=== PATIENT | female | born 1990 | race American Indian/Alaskan Native ===

== ENCOUNTER 2019-02-06 16:04 | Emergency (ER) | payer BC, OTHER ==
[2019-02-06 16:11] VITALS: BP 126/76
--- NOTE | 2019-02-06 16:14 | Event Note ---
ED Screening Note Date of service: 02/06/19 Time: 16:09 ED Screening Note: 29 y/o female comes in for vaginal bleeding 2 weeks ago. LMP 12/07/18. . Pads today 3. Pelvic pressure. This initial assessment/diagnostic orders/clinical plan/treatment(s) is/are subject to change based on patients health status, clinical progression and re- assessment by fellow clinical providers in the ED. Further treatment and workup at subsequent clinical providers discretion. Patient/guardian urged not to elope from the ED as their condition may be serious if not clinically assessed and managed. Initial orders include:
[2019-02-06 17:03] LABS: Basophils % (Auto) 0.7 % (0.0-1.8); Eosinophils # (Auto) 0.1 K/mm3 (0.0-0.4); Eosinophils % (Auto) 1.6 % (0.0-4.3); Hematocrit 32.8 % (30.3-42.9); Lymphocytes # (Auto) 2.2 K/mm3 (1.2-5.4); Lymphocytes % (Auto) 45.3 % (13.4-35.0); Mean Corpuscular HGB Conc 33 % (30-34); Mean Corpuscular Volume 77 fl (79-97); Monocytes # (Auto) 0.4 K/mm3 (0.0-0.8); Monocytes % (Auto) 8.3 % (0.0-7.3); Platelet Count 227 K/mm3 (140-440); Red Blood Count 4.27 M/mm3 (3.65-5.03); Red Cell Distribution Width 16.7 % (13.2-15.2)
[2019-02-06 17:12] LABS: Bilirubin,Urine NEG (Negative); Blood,Urine LG (Negative); Color,Urine Red (Yellow); Mucus,Urine FEW /HPF; RBC,Urine > 182.0 /HPF (0.0-6.0); Urobilinogen,Urine < 2.0 mg/dL (<2.0)
--- NOTE | 2019-02-06 18:19 | Emergency Department Report ---
<MARIAN DEVINE CARA - Last Filed: 02/06/19 19:01> ED Female HPI - General Chief complaint: Vaginal Bleeding Stated complaint: VAGINAL BLEEDING/PELVIC PAIN/PREG Time Seen by Provider: 02/06/19 16:09 Source: patient Mode of arrival: Ambulatory Limitations: No Limitations - History of Present Illness Initial comments: This is a 29-year-old -Scottish female presents to the emergency room with pelvic pain and vaginal bleeding for 2 weeks. Patient states she just recently found out she was with a home test. She is not followed by [facility] PREPARATORY OPERATOR. Her last menstrual period was 12/07/2018, A2 abo rtions. Patient reported some vaginal bleeding initially started out light and increased on yesterday. She reports pelvic pain as constant pressure. She denies urinary frequency, urgency, dysuria, back pain, vaginal discharge, chest pain, dizziness, or palpitations. MD Complaint: vaginal bleeding, pelvic pain Onset/Timin -: week(s) Location: suprapubic Radiation: non-radiating Severity: moderate Severity scale (0 -10): 5 Quality: other (pressure) Consistency: constant Improves with: none Worsens with: none Are you Now?: Yes Last Menstrual Period: 12/07/18 EDC: 09/13/19 Associated Symptoms: vaginal bleeding, abdominal pain. denies: vaginal discharge, nausea/vomiting, fever/chills, headaches, loss of appetite, dysuria, hematuria, rash, seizure, shortness of breath, syncope, weakness - Related Data Sexually active: Yes : 5 Para: 2 A: 2 (abortions) Previous Rx's Medication Instructions Recorded Last Taken Type Cyclobenzaprine [Flexeril] 10 mg PO TID PRN #20 tablet 02/01/16 Unknown Rx Naproxen [Naprosyn] 500 mg PO BID #30 tablet 02/01/16 Unknown Rx cephALEXin [Keflex] 500 mg PO Q8HR #30 cap 02/06/19 Unknown Rx Allergies Allergy/AdvReac Type Severity Reaction Status Date / Time No Known Allergies Allergy Verified 02/06/19 16:06 ED Review of Systems Constitutional: denies: chills, fever Respiratory: denies: cough, shortness of breath, wheezing Cardiovascular: denies: chest pain, palpitations Gastrointestinal: abdominal pain. denies: nausea, diarrhea Genitourinary: other (vaginal bleeding during ). denies: urgency, dysuria, discharge Musculoskeletal: denies: back pain, joint swelling, arthralgia Skin: denies: rash, lesions Neurological: denies: headache, weakness, paresthesias Psychiatric: denies: anxiety, depression ED Past Medical Hx - Past Medical History Hx Congestive Heart Failure: No Hx Diabetes: No Hx Asthma: No Hx COPD: No - Surgical History Additional Surgical History: X2. - Social History Smoking Status: Current Every Day Smoker Substance Use Type: None - Medications Home Medications: Home Medications Medication Instructions Recorded Confirmed Last Taken Type Cyclobenzaprine [Flexeril] 10 mg PO TID PRN #20 tablet 02/01/16 Unknown Rx Naproxen [Naprosyn] 500 mg PO BID #30 tablet 02/01/16 Unknown Rx cephALEXin [Keflex] 500 mg PO Q8HR #30 cap 02/06/19 Unknown Rx ED Physical Exam - General Limitations: No Limitations General appearance: alert, in no apparent distress - Respiratory Respiratory exam: Present: normal lung sounds bilaterally. Absent: respiratory distress - Cardiovascular Cardiovascular Exam: Present: regular rate, normal rhythm. Absent: systolic murmur, diastolic murmur, rubs, gallop - GI/Abdominal GI/Abdominal exam: Present: soft, tenderness (suprapubic tenderness), normal bowel sounds. Absent: distended, guarding, rebound, rigid - Extremities Exam Extremities exam: Present: normal inspection - Back Exam Back exam: Absent: CVA tenderness (R), CVA tenderness (L) - Neurological Exam Neurological exam: Present: alert, oriented X3, normal gait - Psychiatric Psychiatric exam: Present: normal affect, normal mood - Skin Skin exam: Present: warm, dry, intact, normal color. Absent: rash ED Medical Decision Making - Lab Data Result diagrams: 02/06/19 16:38 Lab Results 02/06/19 02/06/19 02/06/19 Range/Units 16:22 16:38 16:38 WBC 4.9 (4.5-11.0) K/mm3 RBC 4.27 (3.65-5.03) M/mm3 Hgb 11.0 (10.1-14.3) gm/dl Hct 32.8 (30.3-42.9) % MCV 77 L (79-97) fl MCH 26 L (28-32) pg MCHC 33 (30-34) % RDW 16.7 H (13.2-15.2) % Plt Count 227 (140-440) K/mm3 Lymph % (Auto) 45.3 H (13.4-35.0) % [place] % (Auto) 8.3 H (0.0-7.3) % Eos % (Auto) 1.6 (0.0-4.3) % Baso % (Auto) 0.7 (0.0-1.8) % Lymph # 2.2 (1.2-5.4) K/mm3 [place] # 0.4 (0.0-0.8) K/mm3 Eos # 0.1 (0.0-0.4) K/mm3 Baso # 0.0 (0.0-0.1) K/mm3 Seg Neutrophils % 44.1 (40.0-70.0) % Seg Neutrophils # 2.1 (1.8-7.7) K/mm3 HCG, Quant 2560 H (0-4) mIU/mL Urine Color Red (Yellow) Urine Turbidity Cloudy (Clear) Urine pH 9.0 H (5.0-7.0) Ur Specific [place] 1.016 (1.003-1.030) Urine Protein 100 mg/dl (Negative) mg/dL Urine Glucose (UA) Neg (Negative) mg/dL Urine Ketones Neg (Negative) mg/dL Urine Blood Lg (Negative) Urine Nitrite Neg (Negative) Urine Bilirubin Neg (Negative) Urine Urobilinogen < 2.0 (<2.0) mg/dL Ur Leukocyte Esterase Sm (Negative) Urine WBC (Auto) 17.0 H (0.0-6.0) /HPF Urine RBC (Auto) > 182.0 (0.0-6.0) /HPF U Epithel Cells (Auto) 10.0 (0-13.0) /HPF Urine Mucus Few /HPF Blood Type Antibody Screen 02/06/19 Range/Units 16:38 WBC (4.5-11.0) K/mm3 RBC (3.65-5.03) M/mm3 Hgb (10.1-14.3) gm/dl Hct (30.3-42.9) % MCV (79-97) fl MCH (28-32) pg MCHC (30-34) % RDW (13.2-15.2) % Plt Count (140-440) K/mm3 Lymph % (Auto) (13.4-35.0) % [place] % (Auto) (0.0-7.3) % Eos % (Auto) (0.0-4.3) % Baso % (Auto) (0.0-1.8) % Lymph # (1.2-5.4) K/mm3 [place] # (0.0-0.8) K/mm3 Eos # (0.0-0.4) K/mm3 Baso # (0.0-0.1) K/mm3 Seg Neutrophils % (40.0-70.0) % Seg Neutrophils # (1.8-7.7) K/mm3 HCG, Quant (0-4) mIU/mL Urine Color (Yellow) Urine Turbidity (Clear) Urine pH (5.0-7.0) Ur Specific [place] (1.003-1.030) Urine Protein (Negative) mg/dL Urine Glucose (UA) (Negative) mg/dL Urine Ketones (Negative) mg/dL Urine Blood (Negative) Urine Nitrite (Negative) Urine Bilirubin (Negative) Urine Urobilinogen (<2.0) mg/dL Ur Leukocyte Esterase (Negative) Urine WBC (Auto) (0.0-6.0) /HPF Urine RBC (Auto) (0.0-6.0) /HPF U Epithel Cells (Auto) (0-13.0) /HPF Urine Mucus /HPF Blood Type A POSITIVE Antibody Screen Negative - Medical Decision Making Patient is stable and examined by me. Vitals are stable. LMP 12/07/2018, 2 abortions. Suprapubic tenderness on exam. Obtained labs and OB ultrasound. The hCG Quant 2560, urinalysis large amount of blood and leukocyte esterase. OB ultrasound pending. Chart signed to Jimy Suazo ED Disposition Clinical Impression: Threatened miscarriage in early Disposition: DC-01 TO HOME OR SELFCARE Condition: Stable Instructions: Threatened Miscarriage (ED), Urinary Tract Infection in Children (ED) Additional Instructions: Maintain a complete pelvic rest, take antibiotic for acute urinary tract infection, return to the ED in 2 days for repeat hCG Quant test, otherwise follow-up with the [facility]PAR[facility]ORY OPERATOR physician as advised. Return to the ED immediately if symptoms get worse. Prescriptions: cephALEXin [Keflex] 500 mg PO Q8HR #30 cap Referrals: ETTA LEVIN MD [Staff Physician] - 3-5 Days Print Language: NEPALESE <BRITTNEE APPLE - Last Filed: 02/06/19 20:37> ED Medical Decision Making - Lab Data Result diagrams: 02/06/19 16:38 - Radiology Data Findings [facility] [address] [place] [address] Ultrasound Report Signed Patient: JAMES WILLOUGHBY MR#: [id number] : 1990 Acct:[id number] Age/Sex: 29 / F ADM Date: 02/06/19 Loc: ED Attending Dr: Ordering Physician: PIOTR SARMIENTO Date of Service: 02/06/19 Procedure(s): US OB transvaginal Accession Number(s): [id number] cc: PIOTR SARMIENTO ULTRASOUND OBSTETRIC INDICATION / CLINICAL INFORMATION: vag bleeding and pelvic pressure. Clinical Gestational Age (GA): 8 weeks 5 days TECHNIQUE: Transabdominal and Transvaginal. COMPARISON: None available. FINDINGS: GESTATIONAL SAC: Not identified. The uterus measures 13.1 x 4.3 x 4.6 cm. Endometrial stripe thickness 1 cm. ADNEXA: No significant abnormality. FREE FLUID: None. ADDITIONAL FINDINGS: None. IMPRESSION: of unknown location. Continued close clinical follow-up is recommended, with serial measurement of beta-hCG and repeat ultrasound as needed. Signer Name: Brittnee Preston MD Signed: 02/06/2019 8:15 PM Workstation Name: [id number] Transcribed By: CHRISTY Dictated By: Brittnee Preston MD Electronically Authenticated By: Brittnee Preston MD Signed Date/Time: 02/06/192014 DD/ 06 TD/TT: - Medical Decision Making I assumed care of the patient from Ms Devine COMBIN[employer] RAIL OPERATOR at shift change at 1900 hours. Patient presented to the ED with pelvic pressure and vaginal bleeding for 2 weeks and recently discovered that she was having performed a home test. Patient stated that the vaginal bleeding was initially mild and just intermittent spotting but in the last 24 hours the bleeding has been heavier. In the ED, patient is alert and oriented 3 and is not in distress. Lab test results were reviewed and show hCG Quant of 2560 and urinalysis shows significant blood in the urine as well as urinary tract infection. The rest of the lab test results are nonactionable. Transvaginal ultrasound shows of unknown location. It is recommended that continued close clinical follow-up with serial measurement of beta-hCG and repeat ultrasound as needed. The fact that the transvaginal ultrasound did not reveal any IUP may be due to the fact that the is too early, ordered the patient has had a complete miscarriage, or the patient may be having ectopic , which is quite unlikely based on the patient's symptoms. The patient was treated in the ED for UTI with Rocephin 1 g intramuscular injection Tylenol for pain. Patient was discharged home on antibiotics for UTI Keflex 500 mg every 8 hours and advised to maintain a complete pelvic rest and either return to the ED in 2 days for serial hCG Quant studies repeat or to her [facility] PREPARATORY OPERATOR physician for the same. Piotr jain was otherwise advised to return to the ED immediately if symptoms get worse. - Differential Diagnosis threatened miscarriage; ectopic ; UTI; Subchorionic bleed; UTI ED Disposition Is pt being admited?: No Does the pt Need Aspirin: No Time of Disposition: 20:51 <ALEC PHILLIP - Last Filed: 02/17/19 00:15> ED Review of Systems ROS: Stated complaint: VAGINAL BLEEDING/PELVIC PAIN/PREG Other details as noted in HPI ED Course Vital Signs 02/06/19 02/06/19 16:09 21:41 Temperature 98.3 F 98.3 F Pulse Rate 89 89 Respiratory 16 18 Rate Blood Pressure 126/76 Blood Pressure 126/76 [Right] O2 Sat by Pulse 100 100 Oximetry ED Medical Decision Making - Lab Data Result diagrams: 02/06/19 16:38 - Medical Decision Making Attestation: Available for consultation Critical care attestation.: If time is entered above; I have spent that time in minutes in the direct care of this critically ill patient, excluding procedure time. ED Disposition Is pt being admited?: No
[2019-02-06] MEDS ORDERED: ACETAMINOPHEN 500 MG TAB PO ONE (19:05)
[2019-02-06] MEDS ORDERED: LIDOCAINE-MPF (1%) 10 MG/1 ML VIAL 5 ML INFILTRATI ONE (19:05)
--- NOTE | 2019-02-06 20:20 | Ultrasound Report ---
ULTRASOUND OBSTETRIC INDICATION / CLINICAL INFORMATION: vag bleeding and pelvic pressure. Clinical Gestational Age (GA): 8 weeks 5 days TECHNIQUE: Transabdominal and Transvaginal. COMPARISON: None available. FINDINGS: GESTATIONAL SAC: Not identified. The uterus measures 13.1 x 4.3 x 4.6 cm. Endometrial stripe thickness 1 cm. ADNEXA: No significant abnormality. FREE FLUID: None. ADDITIONAL FINDINGS: None. IMPRESSION: of unknown location. Continued close clinical follow-up is recommended, with serial measure ment of beta-hCG and repeat ultrasound as needed. Signer Name: Rich Preston MD Signed: 02/06/2019 8:15 PM Workstation Name: [id number]
== END 2019-02-06 21:30 | disposition home or self-care (01) ==
LOC: ED 16:04
DX: O20.0 Threatened abortion (principal); O23.41 Unspecified infection of urinary tract in pregnancy, first trimester; O99.331 Smoking (tobacco) complicating pregnancy, first trimester; F17.200 Nicotine dependence, unspecified, uncomplicated; Z3A.08 8 weeks gestation of pregnancy
CPT/HCPCS: 36415; 76802; 76817; 81001; 84702; 85025; 86850; 86900; 86901; 87086; 96372; 99284; J0696; 76801

== ENCOUNTER 2019-02-08 21:05 | Emergency (ER) | payer BC ==
--- NOTE | 2019-02-08 22:00 | Event Note ---
ED Screening Note Date of service: 02/08/19 Time: 22:00 ED Screening Note: This is a 29 y.o. F. that presents to the ER for repeat hCG to r/o miscarriage. LMP 12/07/2018, A2 abortions Reports spotting and passage of blood clots last night. Last hCG 2560 This initial assessment/diagnostic orders/clinical plan/treatment(s) is/are subject to change based on patients health status, clinical progression and re- assessment by fellow clinical providers in the ED. Further treatment and workup at subsequent clinical providers discretion. Patient/guardian urged not to elope from the ED as their condition may be serious if not clinically assessed and managed. Initial orders include: hCG quant
[2019-02-08 22:01] VITALS: BP 125/87
--- NOTE | 2019-02-09 00:28 | Emergency Department Report ---
ED General Adult HPI - General Chief complaint: Medical Clearance Stated complaint: REPEAT HCG LEVELS CHECK FOR POSS MISCARRIAGE Time Seen by Provider: 02/08/19 21:59 Source: patient Mode of arrival: Ambulatory Limitations: No Limitations - History of Present Illness Initial comments: Patient is a A2 29-year-old Samoan female who is approximately 7-8 weeks gestation presents to the ED for repeat serial hCG Quant studies after the initial one performed 2 days ago was 2560, and the transvaginal ultrasound was indeterminate and unable to identify the location of the . Patient states that she is currently taking antibiotics for acute urinary tract infection about the pelvic pain that she initially presented to the ED has resolved and that the bleeding that she experienced during the hot initial ED presentation 2 days ago has also resolved. Patient denies fever, chills, abdominal pain, nausea, vomiting, vaginal bleeding, vaginal discharge, dysuria, urinary frequency and urgency or headache. MD Complaint: Repeat serial hCG quant studies -: Sudden, days(s) Location: abdomen Radiation: non-radiation Severity scale (0 -10): 0 Improves with: none Worsens with: none Associated Symptoms: denies: denies other symptoms, confusion, chest pain, diaphoresis, fever/chills, headaches, loss of appetite, malaise, nausea/vomiting, rash, shortness of breath, syncope, weakness, other Treatments Prior to Arrival: none - Related Data Previous Rx's Medication Instructions Recorded Last Taken Type Cyclobenzaprine [Flexeril] 10 mg PO TID PRN #20 tablet 02/01/16 Unknown Rx Naproxen [Naprosyn] 500 mg PO BID #30 tablet 02/01/16 Unknown Rx cephALEXin [Keflex] 500 mg PO Q8HR #30 cap 02/06/19 Unknown Rx Allergies Allergy/AdvReac Type Severity Reaction Status Date / Time No Known Allergies Allergy Verified 02/06/19 16:06 ED Review of Systems ROS: Stated complaint: REPEAT HCG LEVELS CHECK FOR POSS MISCARRIAGE Other details as noted in HPI Constitutional: denies: chills, fever Eyes: denies: eye pain, eye discharge, vision change ENT: denies: ear pain, throat pain Respiratory: denies: cough, shortness of breath, wheezing Cardiovascular: denies: chest pain, palpitations Endocrine: no symptoms reported Gastrointestinal: denies: abdominal pain, nausea, diarrhea Genitourinary: other (, here for serial hCG Quant studies). denies: urgency, dysuria, discharge Musculoskeletal: denies: back pain, joint swelling, arthralgia Skin: denies: rash, lesions Neurological: denies: headache, weakness, paresthesias Psychiatric: denies: anxiety, depression Hematological/Lymphatic: denies: easy bleeding, easy bruising ED Past Medical Hx - Past Medical History Previous Medical History?: No Hx Congestive Heart Failure: No Hx Diabetes: No Hx Asthma: No Hx COPD: No - Surgical History Past Surgical History?: Yes Additional Surgical History: X2. - Social History Smoking Status: Current Every Day Smoker Substance Use Type: None - Medications Home Medications: Home Medications Medication Instructions Recorded Confirmed Last Taken Type Cyclobenzaprine [Flexeril] 10 mg PO TID PRN #20 tablet 02/01/16 Unknown Rx Naproxen [Naprosyn] 500 mg PO BID #30 tablet 02/01/16 Unknown Rx cephALEXin [Keflex] 500 mg PO Q8HR #30 cap 02/06/19 Unknown Rx ED Physical Exam - General Limitations: No Limitations General appearance: alert, in no apparent distress - Head Head exam: Present: atraumatic, normocephalic, normal inspection - Eye Eye exam: Present: normal appearance, PERRL, EOMI Pupils: Present: normal accommodation - ENT ENT exam: Present: normal exam, normal orophraynx, mucous membranes moist, TM's normal bilaterally, normal external ear exam - Neck Neck exam: Present: normal inspection, full ROM. Absent: tenderness - Respiratory Respiratory exam: Present: normal lung sounds bilaterally. Absent: respiratory distress, wheezes, rales, stridor, chest wall tenderness, accessory muscle use, decreased breath sounds, prolonged expiratory - Cardiovascular Cardiovascular Exam: Present: regular rate, normal rhythm, normal heart sounds. Absent: systolic murmur, diastolic murmur, rubs, gallop - GI/Abdominal GI/Abdominal exam: Present: soft, normal bowel sounds. Absent: tenderness, guarding, rebound, hyperactive bowel sounds, hypoactive bowel sounds, organomegaly - Extremities Exam Extremities exam: Present: normal inspection, full ROM, normal capillary refill - Back Exam Back exam: Present: normal inspection, full ROM. Absent: tenderness, muscle spasm, paraspinal tenderness - Neurological Exam Neurological exam: Present: alert, oriented X3, CN II-XII intact, normal gait, reflexes normal - Psychiatric Psychiatric exam: Present: normal affect, normal mood - Skin Skin exam: Present: warm, dry, intact, normal color. Absent: rash ED Course Vital Signs 02/08/19 21:08 Temperature 98.6 F Pulse Rate 89 Respiratory 18 Rate Blood Pressure 125/87 O2 Sat by Pulse 99 Oximetry ED Medical Decision Making - Medical Decision Making This is a 29-year-old female who is A2 and is estimated to be approximately 7 to 8 weeks gestation based on the LMP of 12/07/2018 presents to the ED for repeat serial hCG Quant study after the initial hCG Quant results 2 days ago was 2560 and the initial transvaginal ultrasound performed 2 days ago was indeterminate of the location of the . During this visit, patient states that the symptoms that she presented with 2 days ago such as pelvic pain and vaginal bleeding of symptoms resolved. The lab test results for the current hCG Quant is 2541, not significantly different from the initial hCG Quant of 2560 obtained 2 days ago. These findings were discussed with the ED attending physician Dr. Bazan who also reviewed the previous visits lab test results and transvaginal ultrasound report. Dr. Bazan advised that the W[facility] END OPERATOR physician assistant corporation counsel Dr. Posada be contacted for direction on management of the patient. I paged and discussed the patient's case with Dr. Sigrid Levin, the WET END OPERATOR physician assistant corporation counsel for Dr. Posada who advised that the patient be discharged home on ectopic precautions and that the patient follow up with her office within 2 days on 02/10/[address] Levin also advised that the previous most recent transvaginal ultrasound reports and hCG Quant reports be printed and given to the patient to bring to the appointment in the morning on 02/10/2019. This plan was also discussed with Dr. Bazan who also agreed with the plan. Patient was therefore discharged home and advised to maintain a complete pelvic rest. No physical or sexual activity or heavy lifting and to follow-up with Dr. Sigrid Levin first thing on 02/10/2019 in the morning. Patient was otherwise advised to return to the ED immediately if her symptoms get worse. - Differential Diagnosis Ectopic ; M[place] Critical care attestation.: If time is entered above; I have spent that time in minutes in the direct care of this critically ill patient, excluding procedure time. ED Disposition Clinical Impression: Ectopic Qualifiers: Location of ectopic : unspecified location Intrauterine status: without intrauterine Qualified Code(s): O00.90 - Unspecified ectopic without intrauterine Disposition: - TO HOME OR SELFCARE Is pt being admited?: No Does the pt Need Aspirin: No Condition: Stable Instructions: Ectopic (ED) Additional Instructions: MAINTAIN A COMPLETE PELVIC REST, WITH NO SEXUAL OR PHYSICAL ACTIVITIES AND FOLLOW UP WITH DR. SIGRID LEVIN FIRST THING ON Sunday FOR FURTHER EVALUATION. RETURN TO THE ED IMMEDIATELY IF YOUR SYMPTOMS GET WORSE Referrals: SIGRID LEVIN MD [Staff Physician] - [facility] (REPORT TO DR. SIGRID LEVIN'S OFFICE FIRST THING IN THE MORNING ON Sunday FOR FURTHER EVALUATION. TAKE THE PROVIDED REPORTS WITH YOU FOR THE APPOINTMENT) Time of Disposition: 00:52 Print Language: ROMANIAN
== END 2019-02-09 08:12 | disposition home or self-care (01) ==
LOC: ED 21:05
DX: O00.90 Unspecified ectopic pregnancy without intrauterine pregnancy (principal); O99.331 Smoking (tobacco) complicating pregnancy, first trimester; Z79.899 Other long term (current) drug therapy; Z3A.01 Less than 8 weeks gestation of pregnancy
CPT/HCPCS: 36415; 84702